=== PATIENT | male | born 1995 | race Two or more races ===

== ENCOUNTER 2018-04-03 05:39 | Emergency (ER) | payer MEDICAID, OTHER ==
[~2018-04-03] VITALS: Ht 177.8 cm; Wt 83.9 kg
[2018-04-03 05:43] VITALS: BP 125/70
== END 2018-04-03 08:42 | disposition home or self-care (01) ==
LOC: ER 05:43
DX: J20.9 Acute bronchitis, unspecified (principal); J02.9 Acute pharyngitis, unspecified
CPT/HCPCS: 71046